=== PATIENT | male | born 1975 | race Caucasian/White ===

== ENCOUNTER 2016-11-20 21:47 | Emergency (ER) | payer SELFPAY ==
[2016-11-20] MEDS ORDERED: SODIUM CHLORIDE 0.9% 1,000 ML IV STA ×2 (21:51→21:54)
[2016-11-20] MEDS ORDERED: DIPH,PERTUS(ACELL)TETVAC-LF 0.5 ML VIAL IM ONE (21:55)
[2016-11-20 22:03] VITALS: BP 224/125; PULSE 91; RESP 20; TEMP 98.1
[2016-11-20 22:05] LABS: Basophils # (A) 0.1 k/uL (0-0.2); Basophils % (A) 1 %; CH 31.4; CHCM 34.7; Eosinophils # (A) 0.6 k/uL (0-0.7); Eosinophils % (A) 5 %; HCT 47.7 % (39.0-53.0); HDW 2.69; HGB 16.1 gm/dL (13.0-17.5); Luc # (Auto) 0.24; Luc % (Auto) 2; Lymphocytes # (A) 2.4 k/uL (1.0-4.8); Lymphocytes % (A) 21 %; MCH 30.8 pg (25.0-35.0); MCHC 33.8 g/dL (31.0-37.0); Mean Platelet Volume 6.3; Monocytes # (A) 0.5 k/uL (0-1.0); Monocytes % (A) 5 %; Neutrophils # (A) 7.8 k/uL (1.3-7.7); Neutrophils % (A) 67 %; RBC 5.24 m/uL (4.30-5.90); RDW 13.5 % (11.5-15.5); WBC 11.6 k/uL (3.8-10.6)
--- NOTE | 2016-11-20 22:10 | XR ---
EXAMINATION TYPE: XR chest 1V portable DATE OF EXAM: 11/20/2016 10:06 PM COMPARISON: NONE HISTORY: Pain TECHNIQUE: Single supine frontal view of the chest is obtained. FINDINGS: There is no focal air space opacity, pleural effusion, or pneumothorax seen. The cardiac silhouette size is within normal limits. The osseous structures are intact. IMPRESSION: No acute process.
[2016-11-20 22:14] LABS: INR 1.1 (<1.1); Partial Thromboplastin Time 23.3 sec (22.0-30.0); Prothrombin Time 10.7 sec (9.0-12.0)
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
[2016-11-20 22:21] LABS: Glucose,Whole Blood 103 mg/dL (75-99)
[2016-11-20 22:22] LABS: Appearance,Urine Clear (Clear); Bilirubin,Urine Negative (Negative); Glucose,Urine (UA) Negative (Negative); Ketones,Urine Negative (Negative); Leukocyte Esterase,Urine Negative (Negative); Nitrite,Urine Negative (Negative); PH, Urine 5.5 (5.0-8.0); Protein,Urine Negative (Negative); Specific Gravity,Urine 1.003 (1.001-1.035); UA Billing (MACRO vs. MICRO) CHEM; Urobilinogen,Urine <2.0 mg/dL (<2.0)
[2016-11-20 22:28] LABS: Creatine Kinase 303 U/L (55-170)
[2016-11-20 22:29] LABS: ALT 61 U/L (21-72); AST 42 U/L (17-59); Alkaline Phosphatase 97 U/L (38-126); Amylase 70 U/L (30-110); Anion Gap 12 mmol/L; Blood Urea Nitrogen 12 mg/dL (9-20); Calcium 9.3 mg/dL (8.4-10.2); Carbon Dioxide 20 mmol/L (22-30); Chloride 106 mmol/L (98-107); Glucose 103 mg/dL (74-99); Non-African American GFR(MDRD) >60 (>60 ml/min/1.73 sqM); Potassium 3.7 mmol/L (3.5-5.1); Sodium 138 mmol/L (137-145); Total Bilirubin 0.4 mg/dL (0.2-1.3); Total Protein 7.2 g/dL (6.3-8.2)
[2016-11-20 22:39] LABS: Troponin I <0.012 ng/mL (0.000-0.034)
[2016-11-20 22:42] LABS: Alcohol 220 mg/dL
[2016-11-20 22:45] LABS: Creatine Kinase MB 2.7 ng/mL (0.0-2.4)
--- NOTE | 2016-11-20 22:45 | CT ---
EXAM: CT Head Without Intravenous Contrast CLINICAL HISTORY: Reason: Pain TECHNIQUE: Axial computed tomography images of the head/brain without intravenous contrast. CTDI is 57.40 mGy and DLP is 1047.10 mGy-cm This CT exam was performed using one or more of the following dose reduction techniques: automated exposure control, adjustment of the mA and/or kV according to patient size, and/or use of iterative reconstruction technique. COMPARISON: No relevant prior studies available. FINDINGS: Brain: Unremarkable. No hemorrhage. No significant white matter disease. No edema. Ventricles: Unremarkable. No ventriculomegaly. Bones/joints: No acute fracture. Soft tissues: Large broad right scalp soft tissue hematoma extending to the vertex, with associated scalp laceration and multiple foci of subcutaneous air throughout. Sinuses: There is mild paranasal sinus mucosal thickening present throughout. Mastoid air cells: Unremarkable as visualized. No mastoid effusion. IMPRESSION: 1. Broad region of posttraumatic changes involving the right lateral scalp soft tissues. 2. No acute intracranial sequela from trauma is seen. 3. Mild bilateral paranasal sinus disease. EXAM: CT Cervical Spine Without Intravenous Contrast CLINICAL HISTORY: Reason: Pain TECHNIQUE: Axial computed tomography images of the cervical spine without intravenous contrast. CTDI is 30.70 mGy and DLP is 662.00 mGy-cm This CT exam was performed using one or more of the following dose reduction techniques: automated exposure control, adjustment of the mA and/or kV according to patient size, and/or use of iterative reconstruction technique. COMPARISON: No relevant prior studies available. FINDINGS: Vertebrae: There is levoscoliosis centered at the C6 level, along with multilevel degenerative changes. Vertebral body heights are maintained as is alignment. No acute fracture is seen. Discs/spinal canal/neural foramina: There appears to be a mild posterior disc bulge centered to the left of midline at C6-7. There is multilevel foraminal narrowing, preferentially right-sided at C3-4 through C5-6, greater at the latter level. Small amount of air posterior to the thecal sac at T2-3 believed to be related to adjacent advanced facet degenerative change. Soft tissues: Prevertebral soft tissues within normal limits. Thyroid: Subtle small 5 mm nodule in the lateral right thyroid lobe on image 65, and another is seen in the right isthmus measuring 6 mm on image 70. Lung apices: Unremarkable as visualized. IMPRESSION: 1. No acute osseous abnormality is seen. Clinical clearance of the cervical spine is still recommended. 2. Lower cervical levoscoliosis and multilevel degenerative changes. 3. Small right thyroid lobe nodules.
[2016-11-20] MEDS ORDERED: ceFAZolin 1,000 MG in DEXTROSE/WATER 1 50ML.BAG IVPB STA (23:08)
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
[2016-11-20] MEDS ORDERED: LABETALOL 5 MG/ML VIAL MDV IVP STA (23:53)
[2016-11-20] MEDS ORDERED: HYDROmorphone 1 MG/ML 1 ML SYRINGE IVP STA (23:55)
== END 2016-11-21 00:35 | disposition short-term general hospital (02) ==
LOC: EC 21:47
DX: S01.01XA Laceration without foreign body of scalp, initial encounter (principal); S16.1XXA Strain of muscle, fascia and tendon at neck level, initial encounter; I10 Essential (primary) hypertension; F10.129 Alcohol abuse with intoxication, unspecified; I45.2 Bifascicular block; F17.200 Nicotine dependence, unspecified, uncomplicated; Z23 Encounter for immunization; V86.09XA Driver of other special all-terrain or other off-road motor vehicle injured in traffic accident, initial encounter; Y92.410 Unspecified street and highway as the place of occurrence of the external cause
CPT/HCPCS: 99285; 96374; 96375 ×2; 96361 ×3; 90471; 36415; 93005; 86900; 86901; 80053; 82150; 82550; 82553; 83690; 84484; 85025; 85610; 85730; 86850; 81003; 80306; 80320; 71010; 72170; 72125; 70450; 90715; J1170; J0690

== ENCOUNTER 2018-12-25 13:18 | Emergency (ER) | payer OTHER ==
--- NOTE | 2018-12-25 13:35 | ED ---
General Adult HPI - General Chief complaint: Recheck/Abnormal Lab/Rx Stated complaint: elevated BP Time Seen by Provider: 12/25/18 13:29 Source: patient, RN notes reviewed Mode of arrival: ambulatory Limitations: no limitations - History of Present Illness Initial comments: 43-year-old male presents to the emergency department for a chief complaint of h igh blood pressure. States that his blood pressure has been high for a very long time. States it is always high when he goes to urgent care or any other health care office. States that he has also had tingling radiating down his right arm and up his right side of his neck. Since this has been ongoing for several weeks. States he sees a chiropractor for this which does help somewhat. States it worsens with movement. 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 States he did try to follow up with a primary care doctor for this but they did not take his insurance. States he has not followed up with anyone since. Denies any chest pain or shortness of breath. Denies any weakness in the right arm. No headaches.Patient has no other complaints at this time including shortness of breath, chest pain, abdominal pain, nausea or vomiting, headache, or visual changes. - Related Data Previous Rx's Medication Instructions Recorded Hydrochlorothiazide 12.5 mg PO DAILY #20 capsule 12/25/18 Allergies Allergy/AdvReac Type Severity Reaction Status Date / Time No Known Allergies Allergy Verified 12/25/18 13:47 Review of Systems ROS Statement: Those systems with pertinent positive or pertinent negative responses have been documented in the HPI. ROS Other: All systems not noted in ROS Statement are negative. Past Medical History Past Medical History: No Reported History History of Any Multi-Drug Resistant Organisms: None Reported Past Surgical History: No Surgical Hx Reported Past Psychological History: No Psychological Hx Reported Smoking Status: Current every day smoker Past Alcohol Use History: Daily Past Drug Use History: Marijuana General Exam Limitations: no limitations General appearance: alert, in no apparent distress Head exam: Present: atraumatic, normocephalic, normal inspection Eye exam: Present: normal appearance, PERRL, EOMI. Absent: scleral icterus, conjunctival injection, periorbital swelling ENT exam: Present: normal exam, mucous membranes moist Neck exam: Present: normal inspection, full ROM. Absent: tenderness, meningismus, lymphadenopathy Respiratory exam: Present: normal lung sounds bilaterally. Absent: respiratory distress, wheezes, rales, rhonchi, stridor Cardiovascular Exam: Present: regular rate, normal rhythm, normal heart sounds. Absent: systolic murmur, diastolic murmur, rubs, gallop, clicks GI/Abdominal exam: Present: soft, normal bowel sounds. Absent: distended, tenderness, guarding, rebound, rigid Extremities exam: Present: normal inspection, full ROM (Range motion in the right upper arm), normal capillary refill (Capillary refill less than 10 seconds, radial pulses 2+ and equal bilaterally), other (sensation completely intact in the right upper extremity, strength 5 out of 5.). Absent: tenderness, pedal edema, joint swelling, calf tenderness Course Vital Signs 12/25/18 12/25/18 12/25/18 13:25 13:42 15:04 Temperature 98.5 F Pulse Rate 98 92 81 Respiratory 16 16 16 Rate Blood Pressure 128/83 188/144 176/121 O2 Sat by Pulse 99 98 96 Oximetry EKG Findings - EKG Comments: EKG Findings:: Normal sinus rhythm, ventricular rate 85, right bundle branch block, QRS duration 164, QTC 487, compared to EKG from 11/20/2016. Medical Decision Making - Medical Decision Making 43-year-old male presents to the emergency department for a chief complaint of hypertension. States this has been ongoing for a very long time but he has not followed up. His blood pressure is always high. Patient also has paresthesias in the right arm that radiates from his neck. Sometimes it does radiate up to his face as well. Neurovascular status intact in the right upper extremity. Denies any chest pain or pressure. No shortness of breath. Feeling is likely secondary to paresthesia however cardiac workup was initiated. CBC CMP unremarkable. Patient does have an elevated BNP with a right bundle-branch block which was an incidental finding. Right bundle mandie block has been stable since comparison November 2016. Chest x-ray is normal. Troponin negative. Patient is hypertensive however blood pressure did decrease to 170/120. At this time patient will not be given IV antihypertensives as he is completely asy mptomatic however will be given monotherapy for home. Recommended close follow- up with primary care. Patient likely has a cervical radiculopathy causing the tingling with asymmetric hypertension. Referral given to primary care. Requesting DC. - Lab Data Result diagrams: 12/25/18 13:40 12/25/18 13:40 Lab Results 12/25/18 12/25/18 12/25/18 Range/Units 13:40 13:40 13:40 WBC 12.5 H (3.8-10.6) k/uL RBC 5.39 (4.30-5.90) m/uL Hgb 16.4 (13.0-17.5) gm/dL Hct 49.2 (39.0-53.0) % MCV 91.3 (80.0-100.0) fL MCH 30.4 (25.0-35.0) pg MCHC 33.3 (31.0-37.0) g/dL RDW 14.1 (11.5-15.5) % Plt Count 366 (150-450) k/uL Neutrophils % 81 % Lymphocytes % 12 % Monocytes % 4 % Eosinophils % 1 % Basophils % 0 % Neutrophils # 10.2 H (1.3-7.7) k/uL Lymphocytes # 1.5 (1.0-4.8) k/uL Monocytes # 0.5 (0-1.0) k/uL Eosinophils # 0.2 (0-0.7) k/uL Basophils # 0.0 (0-0.2) k/uL PT (9.0-12.0) sec INR (<1.2) APTT (22.0-30.0) sec Sodium 137 (137-145) mmol/L Potassium 4.2 (3.5-5.1) mmol/L Chloride 105 (98-107) mmol/L Carbon Dioxide 19 L (22-30) mmol/L Anion Gap 13 mmol/L BUN 11 (9-20) mg/dL Creatinine 0.87 (0.66-1.25) mg/dL Est GFR (CKD-EPI)AfAm >90 (>60 ml/min/1.73 sqM) Est GFR (CKD-EPI)NonAf >90 (>60 ml/min/1.73 sqM) Glucose 198 H (74-99) mg/dL Calcium 9.9 (8.4-10.2) mg/dL Magnesium 2.2 (1.6-2.3) mg/dL Total Bilirubin 0.6 (0.2-1.3) mg/dL AST 22 (17-59) U/L ALT 16 L (21-72) U/L Alkaline Phosphatase 102 (38-126) U/L Troponin I (0.000-0.034) ng/mL NT-Pro-B Natriuret Pep 1080 pg/mL Total Protein 6.9 (6.3-8.2) g/dL Albumin 3.9 (3.5-5.0) g/dL 12/25/18 12/25/18 Range/Units 13:40 13:40 WBC (3.8-10.6) k/uL RBC (4.30-5.90) m/uL Hgb (13.0-17.5) gm/dL Hct (39.0-53.0) % MCV (80.0-100.0) fL MCH (25.0-35.0) pg MCHC (31.0-37.0) g/dL RDW (11.5-15.5) % Plt Count (150-450) k/uL Neutrophils % % Lymphocytes % % Monocytes % % Eosinophils % % Basophils % % Neutrophils # (1.3-7.7) k/uL Lymphocytes # (1.0-4.8) k/uL Monocytes # (0-1.0) k/uL Eosinophils # (0-0.7) k/uL Basophils # (0-0.2) k/uL PT 10.2 (9.0-12.0) sec INR 0.9 (<1.2) APTT 27.3 (22.0-30.0) sec Sodium (137-145) mmol/L Potassium (3.5-5.1) mmol/L Chloride (98-107) mmol/L Carbon Dioxide (22-30) mmol/L Anion Gap mmol/L BUN (9-20) mg/dL Creatinine (0.66-1.25) mg/dL Est GFR (CKD-EPI)AfAm (>60 ml/min/1.73 sqM) Est GFR (CKD-EPI)NonAf (>60 ml/min/1.73 sqM) Glucose (74-99) mg/dL Calcium (8.4-10.2) mg/dL Magnesium (1.6-2.3) mg/dL Total Bilirubin (0.2-1.3) mg/dL AST (17-59) U/L ALT (21-72) U/L Alkaline Phosphatase (38-126) U/L Troponin I <0.012 (0.000-0.034) ng/mL NT-Pro-B Natriuret Pep pg/mL Total Protein (6.3-8.2) g/dL Albumin (3.5-5.0) g/dL Disposition Clinical Impression: Asymptomatic hypertension, Cervical radiculopathy Disposition: HOME SELF-CARE Condition: Good Instructions (If sedation given, give patient instructions): Hypertension (ED), Cervical Radiculopathy (ED) Additional Instructions: Please take medication as directed. Please follow-up with primary care in 1-2 days. Return here if you are having any worsening symptoms. Prescriptions: Hydrochlorothiazide 12.5 mg PO DAILY #20 capsule Is patient prescribed a controlled substance at d/c from ED?: No Referrals: Mundo Stack MD [REFERRING] - 1-2 days Time of Disposition: 15:56
[2018-12-25 14:31] LABS: Basophils % (A) 0 %; Eosinophils # (A) 0.2 k/uL (0-0.7); Eosinophils % (A) 1 %; HCT 49.2 % (39.0-53.0); HGB 16.4 gm/dL (13.0-17.5); Lymphocytes # (A) 1.5 k/uL (1.0-4.8); Lymphocytes % (A) 12 %; MCH 30.4 pg (25.0-35.0); MCHC 33.3 g/dL (31.0-37.0); MCV 91.3 fL (80.0-100.0); Mean Platelet Volume 7.1; Monocytes # (A) 0.5 k/uL (0-1.0); Monocytes % (A) 4 %; Neutrophils # (A) 10.2 k/uL (1.3-7.7); Neutrophils % (A) 81 %; Platelet Count 366 k/uL (150-450); RBC 5.39 m/uL (4.30-5.90); RDW 14.1 % (11.5-15.5); WBC 12.5 k/uL (3.8-10.6)
--- NOTE | 2018-12-25 14:36 | XR ---
EXAMINATION TYPE: XR chest 2V DATE OF EXAM: 12/25/2018 COMPARISON: Prior chest x-ray November 20, 2016 HISTORY: Hypertension and chest pain. TECHNIQUE: Frontal and lateral views of the chest are obtained. FINDINGS: Improved inspiration on current study. Overlying EKG leads are redemonstrated. There is no focal air space opacity, pleural effusion, or pneumothorax seen. The cardiac silhouette size is with in normal limits. The osseous structures are intact. IMPRESSION: No acute cardiopulmonary process.
[2018-12-25 14:38] LABS: ALT 16 U/L (21-72); AST 22 U/L (17-59); Albumin 3.9 g/dL (3.5-5.0); Alkaline Phosphatase 102 U/L (38-126); Anion Gap 13 mmol/L; Blood Urea Nitrogen 11 mg/dL (9-20); Calcium 9.9 mg/dL (8.4-10.2); Carbon Dioxide 19 mmol/L (22-30); Chloride 105 mmol/L (98-107); Glucose 198 mg/dL (74-99); Magnesium 2.2 mg/dL (1.6-2.3); Potassium 4.2 mmol/L (3.5-5.1); Sodium 137 mmol/L (137-145); Total Bilirubin 0.6 mg/dL (0.2-1.3); Total Protein 6.9 g/dL (6.3-8.2)
[2018-12-25 14:40] LABS: INR 0.9 (<1.2); Partial Thromboplastin Time 27.3 sec (22.0-30.0); Prothrombin Time 10.2 sec (9.0-12.0)
[2018-12-25 15:05] VITALS: PULSE 81
[2018-12-25 16:32] VITALS: BP 172/127; RESP 18; TEMP 98.2
== END 2018-12-25 16:30 | disposition home or self-care (01) ==
LOC: EC 13:18
DX: I10 Essential (primary) hypertension (principal); R59.0 Localized enlarged lymph nodes; R79.89 Other specified abnormal findings of blood chemistry; I45.10 Unspecified right bundle-branch block; F17.200 Nicotine dependence, unspecified, uncomplicated
CPT/HCPCS: 36415; 71046; 80053; 83735; 83880; 84484; 85025; 85610; 85730; 93005; 99284

== ENCOUNTER 2019-07-03 13:03 | Observation (INO) | payer OTHER ==
[2019-07-03 13:11] VITALS: TEMP 98
[2019-07-03] MEDS ORDERED: SODIUM CHLORIDE 0.9% 500 ML 500 ML IV STA (13:20)
[2019-07-03] MEDS ORDERED: HYDROmorphone 1 MG/ML 1 ML SYRINGE IVP STA ×2 (13:22→16:05)
[2019-07-03] MEDS ORDERED: ONDANSETRON 4 MG/2 ML VIAL IVP STA (13:22)
[2019-07-03 13:37] LABS: Basophils # (A) 0.1 k/uL (0-0.2); Basophils % (A) 0 %; Eosinophils # (A) 0.4 k/uL (0-0.7); Eosinophils % (A) 4 %; HCT 50.8 % (39.0-53.0); HGB 17.5 gm/dL (13.0-17.5); Lymphocytes # (A) 1.6 k/uL (1.0-4.8); Lymphocytes % (A) 13 %; MCH 31.4 pg (25.0-35.0); MCHC 34.4 g/dL (31.0-37.0); MCV 91.3 fL (80.0-100.0); Mean Platelet Volume 6.8; Monocytes # (A) 0.4 k/uL (0-1.0); Monocytes % (A) 3 %; Neutrophils # (A) 9.1 k/uL (1.3-7.7); Neutrophils % (A) 78 %; Platelet Count 296 k/uL (150-450); RBC 5.56 m/uL (4.30-5.90); RDW 12.6 % (11.5-15.5); WBC 11.7 k/uL (3.8-10.6)
[2019-07-03 13:45] LABS: ALT 38 U/L (4-49); AST 36 U/L (17-59); African American GFR (CKD) >90 (>60 ml/min/1.73 sqM); Albumin 4.6 g/dL (3.5-5.0); Alkaline Phosphatase 107 U/L (38-126); Anion Gap 11 mmol/L; Blood Urea Nitrogen 13 mg/dL (9-20); Calcium 10.1 mg/dL (8.4-10.2); Carbon Dioxide 24 mmol/L (22-30); Chloride 104 mmol/L (98-107); Glucose 146 mg/dL (74-99); Non-African American GFR(CKD) >90 (>60 ml/min/1.73 sqM); Sodium 139 mmol/L (137-145); Total Protein 7.9 g/dL (6.3-8.2)
--- NOTE | 2019-07-03 14:00 | XR ---
Chest x-ray with left RIBS HISTORY: Trauma and pain, difficulty breathing Frontal view of the chest and 4 views of the left ribs correlated to prior chest x-ray 12/25/2018 Chest x-ray shows a stable appearance. There is a tortuous aorta. No evident airspace disease, pneumo thorax, or pleural effusion. Pulmonary vascularity and stephane are unchanged. There is a spinal curvatur e. No evident displaced rib fracture. impression: Bone scan could be performed for increased sensitivity to assess for fracture as indicate d.
[2019-07-03] MEDS ORDERED: hydrALAZINE HCL 20 MG/ML 1 ML VIAL IVP STA ×2 (14:22→15:21)
--- NOTE | 2019-07-03 15:16 | CT ---
EXAMINATION TYPE: CT angio thor/abd pel aorta DATE OF EXAM: 07/03/2019 COMPARISON: None HISTORY: Left sided pain with elevated blood pressure CT DLP: 1517.5 mGycm. Automated Exposure Control for Dose Reduction was Utilized. CONTRAST: CT scan of the thorax, abdomen and pelvis is performed with IV Contrast, patient injected with 100 mL of Isovue 370. FINDINGS: LUNGS: The lungs are grossly clear, there is no concerning parenchymal mass or nodule identified. T here is no pleural effusion or pneumothorax seen. The tracheobronchial tree is patent. MEDIASTINUM: There are no greater than 1 cm hilar or mediastinal lymph nodes. No pericardial effusi on is seen. There are coronary artery calcifications present. The aorta shows aneurysmal change, ascending aorta measures 4.1 cm LIVER/GB: Liver shows low attenuation likely due to hepatic steatosis and liver is enlarged, gallblad perla is contracted. PANCREAS: No significant abnormality is seen. SPLEEN: Spleen is at the upper limit of normal for size. ADRENALS: No significant abnormality is seen . KIDNEYS: No significant abnormality is seen. BOWEL: No significant abnormality is seen. GENITAL ORGANS: No gross abnormality seen. LYMPH NODES: No greater than 1cm abdominal or pelvic lymph nodes are appreciated. OSSEOUS STRUCTURES: No significant abnormality is seen. No evident fracture. Multilevel spondylosis, degenerative disc change noted in the visualized spine. OTHER: No significant additional abnormality is seen. IMPRESSION: Ascending aortic aneurysm, follow-up recommended. Coronary artery disease. Hepatosplenome jose antonio.
[2019-07-03] MEDS ORDERED: LABETALOL 5 MG/ML VIAL MDV IVP STA (15:30)
--- NOTE | 2019-07-03 15:34 | ED ---
General Adult HPI - General Chief complaint: Back Pain/Injury Stated complaint: back pain Time Seen by Provider: 07/03/19 13:15 Source: patient, RN notes reviewed Mode of arrival: ambulatory Limitations: no limitations - History of Present Illness Initial comments: 44-year-old male presents emergency from chief complaint of back pain, hypertension. Patient states that he injured about a week or so ago after a fall. Patient states that he was splitting wood today felt instantaneous pop in his back and states that he's had extreme pain in which he cannot tolerate. Patient states is taking his breath away. Patient does not go to the PCP and regular basis. Patient states that he is pain is worse with movement. Patient states he's had high blood pressure in the past but he has no complaints and states that his blood pressure is fine. Patient states he is a daily smoker. He hasn't went abdominal pain no head injury no loss conscious. Patient has no bowel bladder incontinence or retention. - Related Data Previous Rx's Medication Instructions Recorded Hydrochlorothiazide 12.5 mg PO DAILY #20 capsule 12/25/18 Allergies Allergy/AdvReac Type Severity Reaction Status Date / Time No Known Allergies Allergy Verified 07/03/19 13:11 Review of Systems ROS Statement: Those systems with pertinent positive or pertinent negative responses have been documented in the HPI. ROS Other: All systems not noted in ROS Statement are negative. Past Medical History Past Medical History: Hypertension History of Any Multi-Drug Resistant Organisms: None Reported Past Surgical History: No Surgical Hx Reported Past Psychological History: No Psychological Hx Reported Smoking Status: Current every day smoker Past Alcohol Use History: Daily Past Drug Use History: Marijuana General Exam Limitations: no limitations General appearance: alert, in no apparent distress Head exam: Present: atraumatic, normocephalic, normal inspection Eye exam: Present: normal appearance, PERRL, EOMI. Absent: scleral icterus, conjunctival injection, periorbital swelling ENT exam: Present: normal exam, normal oropharynx, mucous membranes moist, TM's normal bilaterally Neck exam: Present: normal inspection, full ROM. Absent: tenderness, meningismus, lymphadenopathy Respiratory exam: Present: normal lung sounds bilaterally. Absent: respiratory distress, wheezes, rales, rhonchi, stridor Cardiovascular Exam: Present: regular rate, normal rhythm, normal heart sounds. Absent: systolic murmur, diastolic murmur, rubs, gallop, clicks GI/Abdominal exam: Present: soft, normal bowel sounds. Absent: distended, tenderness, guarding, rebound, rigid Back exam: Present: CVA tenderness (L), paraspinal tenderness. Absent: CVA tenderness (R), vertebral tenderness Neurological exam: Present: alert, oriented X3, CN II-XII intact Skin exam: Present: warm, dry, intact, normal color. Absent: rash Course Vital Signs 07/03/19 07/03/19 13:08 15:16 Temperature 98 F Pulse Rate 96 82 Respiratory 20 18 Rate Blood Pressure 225/156 192/116 O2 Sat by Pulse 97 98 Oximetry EKG Findings - EKG Comments: EKG Findings:: EKG performed at 13:21 normal sinus rhythm with right bundle left anterior fascicular block rate of 93 MN 170 QS 168 QRS 418 cm 519 there are no acute changes from prior EKG on December 25 2018 Medical Decision Making - Medical Decision Making Patient's had labs x-rays and CTs. CT shows a 70 year aneurysm 4.1 cm with no dissection. Patient's troponin is indeterminate at 0.020, EKG shows no acute changes are chronic changes noted. Patient's blood pressure continues to be elevated after multiple antihypertensives patient be admitted for hypertension urgency, back pain, aortic aneurysm. - Lab Data Result diagrams: 07/03/19 13:26 07/03/19 13:26 Lab Results 07/03/19 07/03/19 07/03/19 Range/Units 13:26 13:26 13:26 WBC 11.7 H (3.8-10.6) k/uL RBC 5.56 (4.30-5.90) m/uL Hgb 17.5 (13.0-17.5) gm/dL Hct 50.8 (39.0-53.0) % MCV 91.3 (80.0-100.0) fL MCH 31.4 (25.0-35.0) pg MCHC 34.4 (31.0-37.0) g/dL RDW 12.6 (11.5-15.5) % Plt Count 296 (150-450) k/uL Neutrophils % 78 % Lymphocytes % 13 % Monocytes % 3 % Eosinophils % 4 % Basophils % 0 % Neutrophils # 9.1 H (1.3-7.7) k/uL Lymphocytes # 1.6 (1.0-4.8) k/uL Monocytes # 0.4 (0-1.0) k/uL Eosinophils # 0.4 (0-0.7) k/uL Basophils # 0.1 (0-0.2) k/uL Sodium 139 (137-145) mmol/L Potassium 4.0 (3.5-5.1) mmol/L Chloride 104 (98-107) mmol/L Carbon Dioxide 24 (22-30) mmol/L Anion Gap 11 mmol/L BUN 13 (9-20) mg/dL Creatinine 0.97 (0.66-1.25) mg/dL Est GFR (CKD-EPI)AfAm >90 (>60 ml/min/1.73 sqM) Est GFR (CKD-EPI)NonAf >90 (>60 ml/min/1.73 sqM) Glucose 146 H (74-99) mg/dL Calcium 10.1 (8.4-10.2) mg/dL Total Bilirubin 1.0 (0.2-1.3) mg/dL AST 36 (17-59) U/L ALT 38 (4-49) U/L Alkaline Phosphatase 107 (38-126) U/L Troponin I 0.020 (0.000-0.034) ng/mL Total Protein 7.9 (6.3-8.2) g/dL Albumin 4.6 (3.5-5.0) g/dL Lipase 81 (23-300) U/L Disposition Clinical Impression: Contusion of rib on left side, Hypertensive urgency, Ascending aortic aneurysm Disposition: ADMITTED IP TO THIS HOSP Condition: Fair Referrals: None,Stated [Primary Care Provider] - 1-2 days
[2019-07-03] MEDS ORDERED: hydrALAZINE HCL 20 MG/ML 1 ML VIAL IVP PRN (15:36)
[2019-07-03] MEDS ORDERED: HYDROmorphone 1 MG/ML 1 ML SYRINGE IVP PRN (16:05)
[2019-07-03] MEDS ORDERED: HYDROmorphone 0.5 MG/0.5 ML SYRINGE IVP PRN (16:05)
--- NOTE | 2019-07-03 17:28 | ED ---
Medical Decision Making - Medical Decision Making Received phone call from special education paraprofessional after echo was obtained there concern that there may be a false lumen or possible dissection. Transportation Aid recommends patient to be transferred for possible gated CT/MAINOR Patient continues to have hypertension despite multiple medications. Patient was started on a esmolol drip with the 500 mics bolus and 50 mics per kilogram drip. I did contact vascular surgery who recommended to contact cardiothoracic at another facility. I did contact [facility] who did not have coverage for a type a dissection. earle Wright was contacted I did discuss case with Dr. Melissa at 17:15. Except transfer awaiting bed placement at this time. Cardene was started at 5 mg per hour at 1750 Bed number [id number] given at 1755 - Lab Data Result diagrams: 07/03/19 13:26 07/03/19 13:26 Lab Results 07/03/19 07/03/19 07/03/19 Range/Units 13:26 13:26 13:26 WBC 11.7 H (3.8-10.6) k/uL RBC 5.56 (4.30-5.90) m/uL Hgb 17.5 (13.0-17.5) gm/dL Hct 50.8 (39.0-53.0) % MCV 91.3 (80.0-100.0) fL MCH 31.4 (25.0-35.0) pg MCHC 34.4 (31.0-37.0) g/dL RDW 12.6 (11.5-15.5) % Plt Count 296 (150-450) k/uL Neutrophils % 78 % Lymphocytes % 13 % Monocytes % 3 % Eosinophils % 4 % Basophils % 0 % Neutrophils # 9.1 H (1.3-7.7) k/uL Lymphocytes # 1.6 (1.0-4.8) k/uL Monocytes # 0.4 (0-1.0) k/uL Eosinophils # 0.4 (0-0.7) k/uL Basophils # 0.1 (0-0.2) k/uL Sodium 139 (137-145) mmol/L Potassium 4.0 (3.5-5.1) mmol/L Chloride 104 (98-107) mmol/L Carbon Dioxide 24 (22-30) mmol/L Anion Gap 11 mmol/L BUN 13 (9-20) mg/dL Creatinine 0.97 (0.66-1.25) mg/dL Est GFR (CKD-EPI)AfAm >90 (>60 ml/min/1.73 sqM) Est GFR (CKD-EPI)NonAf >90 (>60 ml/min/1.73 sqM) Glucose 146 H (74-99) mg/dL Calcium 10.1 (8.4-10.2) mg/dL Total Bilirubin 1.0 (0.2-1.3) mg/dL AST 36 (17-59) U/L ALT 38 (4-49) U/L Alkaline Phosphatase 107 (38-126) U/L Troponin I 0.020 (0.000-0.034) ng/mL Total Protein 7.9 (6.3-8.2) g/dL Albumin 4.6 (3.5-5.0) g/dL Lipase 81 (23-300) U/L Disposition Clinical Impression: Contusion of rib on left side, Hypertensive urgency, Ascending aortic aneurysm, Aortic dissection Disposition: OTHER INSTITUTION NOT DEFINED Condition: Critical - Out of Hospital Transfer - Req. Specs Out of Hospital Transfer - Requested Specifics: Medical ICU ([facility])
[2019-07-03] MEDS ORDERED: ESMOLOL IN SODIUM CHLORIDE PMX 2.5 GM in SALINE 1 250ML.BAG IV SCH (17:30)
[2019-07-03] MEDS ORDERED: NICOTINE 21MG/24HR PATCH TRANSDERM STA (17:41)
[2019-07-03] MEDS ORDERED: LORazepam 2 MG/ML INJ IV STA (17:46)
[2019-07-03 18:08] VITALS: BP 185/123; PULSE 76; RESP 17
[2019-07-03] MEDS ORDERED: niCARdipine 20 MG in SODIUM CHLORIDE 0.9% 192 ML IV SCH (18:15)
[2019-07-04] MEDS ORDERED: ASPIRIN 325 MG TAB PO SCH (09:00)
--- NOTE | 2019-07-04 12:40 | ECHOF ---
Referral Reason:pain, uncontrolled hypertension MEASUREMENTS -------- HEIGHT: 182.9 cm WEIGHT: 93.0 kg BP: IVSd: 1.6 cm (0.6 - 1.1) LVIDd: 4.8 cm (3.9 - 5.3) LVPWd: 1.4 cm (0.6 - 1.1) EDV(Teich): 110 ml IVSs: 1.9 cm LVIDs: 3.8 cm LVPWs: 1.0 cm %IVS Thck: 15 % ESV(Teich): 62 ml EF(Teich): 43 % %FS: 21 % SV(Teich): 47 ml Ao Diam: 4.3 cm (2.0 - 3.7) LA Diam: 2.7 cm (2.7 - 3.8) AV Cusp: 1.9 cm (1.5 - 2.6) EPSS: 0.3 cm MV E Kel[place]: 0.44 m/s MV DecT: 242 ms MV Dec [place]: 1.8 m/s MV A Kelvin: 0.85 m/s MV E/A Ratio: 0.51 MV PHT: 70 ms AV Vmax: 1.43 m/s AV maxP.22 mmHg TR Vmax: 1.18 m/s TR maxP.60 mmHg RAP: 5.00 mmHg RVSP: 10.60 mmHg MV EF SLOPE: 101.09 mm/s (70 - 150) MV EXCURSION: 18.74 mm (> 18.000) FINDINGS -------- Sinus rhythm. This was a technically good study. The left ventricular size is normal. There is severe concentric left ventricular hypertrophy. Ove rall left ventricular systolic function is normal with, an EF between 55 - 60 %. The right ventricle is normal in size. The left atrial size is normal. The right atrial size is normal. There is mild aortic valve sclerosis. There is no evidence of aortic regurgitation. Mild mitral annular calcification present. Mild mitral regurgitation is present. Mild tricuspid regurgitation present. Right ventricular systolic pressure is normal at < 35 mmHg. There is no evidence of pulmonary hypertension. There is no pulmonic regurgitation present. Aortic Root is dilated and measures 4.4cm. There is no pericardial effusion. Possible Aortic Dissection: Dr MAURICE spoke to Dr Liang about Echo Findings. CONCLUSIONS -------- 1. Sinus rhythm. 2. This was a technically good study. 3. The left ventricular size is normal. 4. There is severe concentric left ventricular hypertrophy. 5. Overall left ventricular systolic function is normal with, an EF between 55 - 60 %. 6. The right ventricle is normal in size. 7. The left atrial size is normal. 8. The right atrial size is normal. 9. There is mild aortic valve sclerosis. 10. Mild mitral annular calcification present. 11. Mild mitral regurgitation is present. 12. Mild tricuspid regurgitation present. 13. Right ventricular systolic pressure is normal at < 35 mmHg. 14. There is no evidence of pulmonary hypertension. 15. There is no pulmonic regurgitation present. 16. Aortic Root is dilated and measures 4.4cm. 17. There is no pericardial effusion. 18. Possible Aortic Dissection: Dr MAURICE spoke to Dr Liang about Echo Findings. IRRIGATIONIST DESIGNER: Anum Gil RDCS
--- NOTE | 2019-07-09 15:23 | HP ---
HISTORY AND PHYSICAL HISTORY AND PHYSICAL AND DISCHARGE SUMMARY: FINAL DIAGNOSES: 1. Possible aortic dissection with aortic aneurysm. 2. Hypertensive urgency. HISTORY OF PRESENT ILLNESS: This is a 44-year-old gentleman with a past medical history of multiple medical problems, admitted with features of aortic aneurysm, and possible aortic dissection. Cardiology saw the patient. Patient was evaluated in the ER and the patient directly transferred to [facility] for further evaluation and treatment before being seen. Please refer to Cardiology consultation notes and ER notes for further details. The prognosis remained extremely guarded throughout the hospitalization. MMODL / IJN: [id number] /
== END 2019-07-03 18:37 | disposition short-term general hospital, planned readmission (82) ==
LOC: EC 13:03 → 3SCARD 15:23
PROVIDERS: ADMIT Hospitalist; ATTEND Hospitalist
DX: I71.2 Thoracic aortic aneurysm, without rupture (principal); I16.0 Hypertensive urgency; S20.211A Contusion of right front wall of thorax, initial encounter; I10 Essential (primary) hypertension; I08.3 Combined rheumatic disorders of mitral, aortic and tricuspid valves; I44.4 Left anterior fascicular block; I25.10 Atherosclerotic heart disease of native coronary artery without angina pectoris; R16.2 Hepatomegaly with splenomegaly, not elsewhere classified; F17.200 Nicotine dependence, unspecified, uncomplicated; Z79.899 Other long term (current) drug therapy; W19.XXXA Unspecified fall, initial encounter
CPT/HCPCS: 96361; 96376; 96365; 96375; 99285; 36415; 93005; 93306; 80053; 83690; 84484; 85025; 71101; 71275; 74174; G0378; S4990; J2060; J0360; J2405; J1170; Q9967

== ENCOUNTER 2019-07-22 10:37 | Inpatient (IN) | payer OTHER ==
[2019-07-22] MEDS ORDERED: CARVEDILOL 12.5 MG TAB PO STA ×2 (11:06→18:23)
--- NOTE | 2019-07-22 12:06 | ED ---
Recheck HPI - General Chief Complaint: Recheck/Abnormal Lab/Rx Stated Complaint: Med refill Time Seen by Provider: 07/22/19 11:01 Source: patient Mode of arrival: ambulatory Limitations: no limitations - History of Present Illness Initial Comments: 44-year-old male patient with recent diagnosis of aortic aneurysm and high blood pressure presents to the emergency department today requesting refill on his blood pressure medication. Patient states that he currently does not have insurance and has not yet been able to establish with a primary care provider. States he ran out of his Coreg. Patient states he has been having elevated blood pressures and was instructed to double the dose of Coreg if his blood pressures remained high. Patient states he ran out early and does not have a refill on this medication. States he is currently feeling well. Denies any physical symptoms or concerns. Denies chest pain, shortness of breath, abdominal pain, nausea, or vomiting. Denies numbness, tingling, dizziness, weakness. Denies headache. - Related Data Home Medications Medication Instructions Recorded Confirmed Aspirin EC [Ecotrin Low Dose] 81 mg PO DAILY 07/22/19 07/22/19 Atorvastatin [Lipitor] 40 mg PO HS 07/22/19 07/22/19 Carvedilol [Coreg] 12.5 mg PO BID 07/22/19 07/22/19 Losartan Potassium 50 mg PO DAILY 07/22/19 07/22/19 Allergies Allergy/AdvReac Type Severity Reaction Status Date / Time No Known Allergies Allergy Verified 07/22/19 15:07 Review of Systems ROS Statement: Those systems with pertinent positive or pertinent negative responses have been documented in the HPI. ROS Other: All systems not noted in ROS Statement are negative. Past Medical History Past Medical History: Hypertension Additional Past Medical History / Comment(s): aortic anerysm History of Any Multi-Drug Resistant Organisms: None Reported Past Surgical History: No Surgical Hx Reported Past Psychological History: No Psychological Hx Reported Smoking Status: Current every day smoker Past Alcohol Use History: Daily Past Drug Use History: Marijuana General Exam Limitations: no limitations General appearance: alert, in no apparent distress, other (Physical well- developed, well-nourished adult male patient in no acute distress. Vital signs upon presentation are temperature 98.0F, pulse 84, respirations 18, blood pressure 2 10/21/2025, pulse ox 95% on room air.) Eye exam: Present: normal appearance, PERRL, EOMI. Absent: scleral icterus, conjunctival injection, periorbital swelling ENT exam: Present: normal exam, normal oropharynx, mucous membranes moist Respiratory exam: Present: normal lung sounds bilaterally. Absent: respiratory distress, wheezes, rales, rhonchi, stridor Cardiovascular Exam: Present: regular rate, normal rhythm, normal heart sounds. Absent: systolic murmur, diastolic murmur, rubs, gallop, clicks GI/Abdominal exam: Present: soft, normal bowel sounds. Absent: distended, tenderness, guarding, rebound, rigid Neurological exam: Present: alert, oriented X3, CN II-XII intact Psychiatric exam: Present: normal affect, normal mood Skin exam: Present: warm, dry, intact, normal color. Absent: rash Course Vital Signs 07/22/19 07/22/19 07/22/19 10:50 11:19 12:30 Temperature 98 F Pulse Rate 84 76 100 Respiratory 18 18 18 Rate Blood Pressure 204/126 206/130 188/128 O2 Sat by Pulse 95 95 99 Oximetry 07/22/19 07/22/19 07/22/19 13:35 14:17 15:13 Temperature Pulse Rate 75 70 73 Respiratory 18 16 18 Rate Blood Pressure 214/142 192/128 211/136 O2 Sat by Pulse 98 98 98 Oximetry 07/22/19 07/22/19 07/22/19 15:39 16:58 18:00 Temperature Pulse Rate 81 72 70 Respiratory 18 18 Rate Blood Pressure 182/123 192/125 179/119 O2 Sat by Pulse 98 98 Oximetry Medical Decision Making - Medical Decision Making 44-year-old male patient recently admitted and transferred to [facility] after finding and descending aortic aneurysm measuring 4.1 cm. Patient was found to have elevated blood pressure as well. He was started on losartan and Coreg. Patient presented today for refill of his coronary, blood pressure sound to be significantly elevated to the point of hypertensive urgency. Is given several blood pressure medications with no responsiveness blood pressure. He'll be admitted to the hospital for further monitoring and blood pressure management. We did double his daily doses of losartan and Coreg. There are medications available for as needed dosing. - Lab Data Result diagrams: 07/22/19 13:24 07/22/19 13:24 Lab Results 07/22/19 07/22/1919 Range/Units 13:24 13:24 14:20 WBC 10.8 H (3.8-10.6) k/uL RBC 5.22 (4.30-5.90) m/uL Hgb 15.9 (13.0-17.5) gm/dL Hct 47.9 (39.0-53.0) % MCV 91.8 (80.0-100.0) fL MCH 30.4 (25.0-35.0) pg MCHC 33.2 (31.0-37.0) g/dL RDW 12.6 (11.5-15.5) % Plt Count 287 (150-450) k/uL Neutrophils % 67 % Lymphocytes % 18 % Monocytes % 6 % Eosinophils % 6 % Basophils % 1 % Neutrophils # 7.3 (1.3-7.7) k/uL Lymphocytes # 2.0 (1.0-4.8) k/uL Monocytes # 0.6 (0-1.0) k/uL Eosinophils # 0.7 (0-0.7) k/uL Basophils # 0.1 (0-0.2) k/uL Sodium 138 (137-145) mmol/L Potassium 4.4 (3.5-5.1) mmol/L Chloride 108 H (98-107) mmol/L Carbon Dioxide 23 (22-30) mmol/L Anion Gap 7 mmol/L BUN 13 (9-20) mg/dL Creatinine 0.83 (0.66-1.25) mg/dL Est GFR (CKD-EPI)AfAm >90 (>60 ml/min/1.73 sqM) Est GFR (CKD-EPI)NonAf >90 (>60 ml/min/1.73 sqM) Glucose 98 (74-99) mg/dL Calcium 10.0 (8.4-10.2) mg/dL Total Bilirubin 0.6 (0.2-1.3) mg/dL AST 41 (17-59) U/L ALT 60 H (4-49) U/L Alkaline Phosphatase 141 H (38-126) U/L Total Protein 7.3 (6.3-8.2) g/dL Albumin 4.3 (3.5-5.0) g/dL Urine Color Yellow Urine Appearance Clear (Clear) Urine pH 6.5 (5.0-8.0) Ur Specific [place] 1.016 (1.001-1.035) Urine Protein Negative (Negative) Urine Glucose (UA) Negative (Negative) Urine Ketones Negative (Negative) Urine Blood Negative (Negative) Urine Nitrite Negative (Negative) Urine Bilirubin Negative (Negative) Urine Urobilinogen <2.0 (<2.0) mg/dL Ur Leukocyte Esterase Negative (Negative) Disposition Clinical Impression: Hypertensive urgency Disposition: ADMITTED IP TO THIS [facility] Condition: Serious Referrals: None,Stated [Primary Care Provider] - 1-2 days Decision to Admit Reason: Admit from EC Decision Date: 07/22/19 Decision Time: 18:28
[2019-07-22] MEDS ORDERED: LABETALOL 5 MG/ML VIAL MDV IVP STA ×2 (13:11→16:02)
[2019-07-22 13:35] LABS: Basophils # (A) 0.1 k/uL (0-0.2); Basophils % (A) 1 %; Eosinophils # (A) 0.7 k/uL (0-0.7); Eosinophils % (A) 6 %; HCT 47.9 % (39.0-53.0); HGB 15.9 gm/dL (13.0-17.5); Lymphocytes % (A) 18 %; MCH 30.4 pg (25.0-35.0); MCHC 33.2 g/dL (31.0-37.0); MCV 91.8 fL (80.0-100.0); Monocytes # (A) 0.6 k/uL (0-1.0); Monocytes % (A) 6 %; Neutrophils # (A) 7.3 k/uL (1.3-7.7); Neutrophils % (A) 67 %; Platelet Count 287 k/uL (150-450); RBC 5.22 m/uL (4.30-5.90); RDW 12.6 % (11.5-15.5); WBC 10.8 k/uL (3.8-10.6)
[2019-07-22] MEDS ORDERED: hydrALAZINE HCL 20 MG/ML 1 ML VIAL IVP STA (13:44)
[2019-07-22 13:45] LABS: ALT 60 U/L (4-49); AST 41 U/L (17-59); African American GFR (CKD) >90 (>60 ml/min/1.73 sqM); Albumin 4.3 g/dL (3.5-5.0); Alkaline Phosphatase 141 U/L (38-126); Anion Gap 7 mmol/L; Blood Urea Nitrogen 13 mg/dL (9-20); Carbon Dioxide 23 mmol/L (22-30); Chloride 108 mmol/L (98-107); Glucose 98 mg/dL (74-99); Non-African American GFR(CKD) >90 (>60 ml/min/1.73 sqM); Potassium 4.4 mmol/L (3.5-5.1); Sodium 138 mmol/L (137-145); Total Bilirubin 0.6 mg/dL (0.2-1.3); Total Protein 7.3 g/dL (6.3-8.2)
[2019-07-22] MEDS ORDERED: ENALAPRILAT 1.25 MG/ML 1 ML VIAL IVP STA (14:55)
[2019-07-22 14:56] LABS: Appearance,Urine Clear (Clear); Bilirubin,Urine Negative (Negative); Blood,Urine Negative (Negative); Color,Urine Yellow; Glucose,Urine (UA) Negative (Negative); Ketones,Urine Negative (Negative); Leukocyte Esterase,Urine Negative (Negative); Nitrite,Urine Negative (Negative); PH, Urine 6.5 (5.0-8.0); Protein,Urine Negative (Negative); Specific Gravity,Urine 1.016 (1.001-1.035); Urobilinogen,Urine <2.0 mg/dL (<2.0)
[2019-07-22] MEDS ORDERED: NICOTINE 21MG/24HR PATCH TRANSDERM STA (15:32)
[2019-07-22] MEDS ORDERED: LOSARTAN 50 MG TAB PO STA (18:23)
[2019-07-22] MEDS ORDERED: NALOXONE 0.4 MG/ML 1 ML VIAL IV PRN (18:23)
[2019-07-22] MEDS ORDERED: hydrALAZINE HCL 20 MG/ML 1 ML VIAL IVP PRN (18:25)
--- NOTE | 2019-07-22 19:35 | P.HPIM ---
History of Present Illness H&P Date: 07/22/19 Chief Complaint: Elevated blood pressure Patient is a 44-year-old male with a known history of hypertension, nicotine addiction currently everyday smoker and also marijuana use who was recently diagnosed with aortic aneurysm 4.1 cm came to ER with complaints of elevated blood pressure and out of his blood pressure medications. Patient says that he was told by his physician to take double the dose with blood pressure is high and he ran out of his medications currently. Currently denied any complaints of chest pain or shortness of breath. No nausea vomiting or abdominal pain. No dizziness or lightheadedness. No headache or dizziness. Patient was previously admitted to the hospital status post fall and left sided rib cage pain, CT chest was done showed aortic aneurysm descending, patient was transferred to [facility] where he was told that he is not a surgical candidate and was recommended to follow-up on regular basis. Currently patient takes losartan and Coreg at home. Review of Systems Constitutional: Patient denies any fever or chills . No generalized weakness or weight loss. Abdomen: Patient denied nausea vomiting and diarrhea and abdominal pain. Cardiovascular: Patient denies any chest pain or short of breath no palpitations. Respiratory: patient denied any cough is from production. No shortness of breath Neurologic: Patient denied any numbness or tingling headache. Musculoskeletal: Patient denies any complaints of joint swelling or deformity. Skin: Negative Psychiatric: Negative Endocrine: No heat or cold intolerance. No recent weight gain. Genitourinary: No dysuria or hematuria. All other 14 point ROS negative except the above Past Medical History Past Medical History: Hypertension Additional Past Medical History / Comment(s): aortic anerysm History of Any Multi-Drug Resistant Organisms: None Reported Past Surgical History: No Surgical Hx Reported Past Psychological History: No Psychological Hx Reported Smoking Status: Current every day smoker Past Alcohol Use History: Daily Past Drug Use History: Marijuana Medications and Allergies Home Medications Medication Instructions Recorded Confirmed Type Aspirin EC [Ecotrin Low Dose] 81 mg PO DAILY 07/22/19 07/22/19 History Atorvastatin [Lipitor] 40 mg PO HS 07/22/19 07/22/19 History Carvedilol [Coreg] 12.5 mg PO BID 07/22/19 07/22/19 History Losartan Potassium 50 mg PO DAILY 07/22/19 07/22/19 History Allergies Allergy/AdvReac Type Severity Reaction Status Date / Time No Known Allergies Allergy Verified 07/22/19 15:07 Physical Exam Vitals: Vital Signs Temp Pulse Resp BP Pulse Ox 07/22/19 18:49 74 18 182/114 98 07/22/19 18:00 70 179/119 07/22/19 16:58 72 18 192/125 98 07/22/19 15:39 81 18 182/123 98 07/22/19 15:13 73 18 211/136 98 07/22/19 14:17 70 16 192/128 98 07/22/19 13:35 75 18 214/142 98 07/22/19 12:30 100 18 188/128 99 07/22/19 11:19 76 18 206/130 95 07/22/19 10:50 98 F 84 18 204/126 95 Intake and Output 07/22/19 07/22/19 07/22/19 06:59 14:59 22:59 Other: Weight 92.986 kg PHYSICAL EXAMINATION: Patient is lying in the bed comfortably, no acute distress, awake alert and oriented.. HEENT: Normocephalic. Neck is supple. Pupils reactive. Nostrils clear. Oral cavity is moist. Ears reveal no drainage. Neck reveals no JVD, carotid bruits, or thyromegaly. CHEST EXAMINATION: Trachea is central. Symmetrical expansion. Lung lizama clear to auscultation and percussion. CARDIAC: Normal S1, S2 with no gallops. No murmurs ABDOMEN: Soft. Bowel sounds normal. No organomegaly. No abdominal bruits. Extremities: reveal no edema. No clubbing or cyanosis Neurologically awake, alert, oriented x3 with well-coordinated movements. No focal deficits noted Skin: No rash or skin lesions. Psychiatric: Coperative. Nonsuicidal Musculoskeletal: No joint swelling or deformity. Normal range of motion. Results CBC & Chem 7: 07/22/19 13:24 07/22/19 13:24 Labs: Abnormal Lab Results - Last 24 Hours (Table) 07/22/19 07/22/19 Range/Units 13:24 13:24 WBC 10.8 H (3.8-10.6) k/uL Chloride 108 H (98-107) mmol/L ALT 60 H (4-49) U/L Alkaline Phosphatase 141 H (38-126) U/L Thrombosis Risk Factor Assmnt - DVT/VTE Prophylaxis DVT/VTE Prophylaxis: Pharmacologic Prophylaxis ordered Assessment and Plan Assessment: Hypertensive urgency Uncontrolled hypertension likely due to ran out of Medications. Recently diagnosed descending I aortic aneurysm 4.1 cm. Ongoing nicotine addiction Marijuana use DVT prophylaxis with early ablation Plan: Patient was given IV hydralazine and enalaprilat in the ER. Patient was started back on Coreg and losartan. Coreg dose was increased to 25 mg twice a day. We will add hydrochlorothiazide 12.5 mg daily and follow up blood pressure closely and titrate medications as needed. Patient was on [employer] sleep for smoking cessation and marijuana use. Further conditions based on the clinical course. Time with Patient: Greater than 30
[2019-07-22] MEDS: HYDROCHLOROTHIAZIDE 12.5 MG CAP PO SCH (20:16)
[2019-07-22] MEDS ORDERED: ATORVASTATIN 40 MG TAB PO SCH (21:00)
[2019-07-22] MEDS: LOSARTAN 50 MG TAB PO SCH (21:36)
[2019-07-22] MEDS: ENALAPRILAT 1.25 MG/ML 1 ML VIAL IVP PRN (21:40)
[2019-07-22] MEDS ORDERED: MELATONIN 3 MG TABLET PO SCH (23:15)
[2019-07-23 00:41] VITALS: RESP 18
[2019-07-23] MEDS: ENALAPRILAT 1.25 MG/ML 1 ML VIAL IVP PRN (04:35)
[2019-07-23] MEDS ORDERED: ACETAMINOPHEN TAB 325 MG TAB PO PRN (05:28)
[2019-07-23] MEDS ORDERED: CARVEDILOL 12.5 MG TAB PO SCH (07:30)
[2019-07-23] MEDS: LOSARTAN 50 MG TAB PO SCH (07:53)
[2019-07-23] MEDS: HYDROCHLOROTHIAZIDE 12.5 MG CAP PO SCH (07:53)
[2019-07-23] MEDS ORDERED: ASPIRIN 81 MG PO SCH (09:00)
[2019-07-23 11:51] VITALS: BP 149/103; PULSE 67; TEMP 98
== END 2019-07-23 13:18 | disposition home or self-care (01) | DRG 305 ==
LOC: EC 10:37 → 3SCARD 15:00
PROVIDERS: ADMIT Internal Medicine; ATTEND Internal Medicine
DX: I16.0 Hypertensive urgency (principal); I71.9 Aortic aneurysm of unspecified site, without rupture; F17.210 Nicotine dependence, cigarettes, uncomplicated; I10 Essential (primary) hypertension; Z79.82 Long term (current) use of aspirin; Z79.899 Other long term (current) drug therapy; Z91.81 History of falling; Z76.0 Encounter for issue of repeat prescription
CPT/HCPCS: 36415; 80053; 81003; 85025; 96374; 96375; 96376; 99283

== ENCOUNTER 2020-03-04 20:11 | Emergency (ER) | payer OTHER ==
[2020-03-04 20:24] VITALS: RESP 18; TEMP 98.1
[2020-03-04 21:34] LABS: Basophils # (A) 0.1 k/uL (0-0.2); Basophils % (A) 1 %; Eosinophils # (A) 0.3 k/uL (0-0.7); Eosinophils % (A) 4 %; HCT 45.1 % (39.0-53.0); HGB 15.5 gm/dL (13.0-17.5); Lymphocytes # (A) 2.4 k/uL (1.0-4.8); Lymphocytes % (A) 26 %; MCH 31.3 pg (25.0-35.0); MCHC 34.3 g/dL (31.0-37.0); MCV 91.2 fL (80.0-100.0); Mean Platelet Volume 7.3; Monocytes # (A) 0.6 k/uL (0-1.0); Monocytes % (A) 6 %; Neutrophils # (A) 5.7 k/uL (1.3-7.7); Neutrophils % (A) 61 %; Platelet Count 223 k/uL (150-450); RBC 4.95 m/uL (4.30-5.90); RDW 12.9 % (11.5-15.5); WBC 9.3 k/uL (3.8-10.6)
[2020-03-04 21:42] LABS: ALT 72 U/L (4-49); AST 50 U/L (17-59); African American GFR (CKD) >90 (>60 ml/min/1.73 sqM); Albumin 4.4 g/dL (3.5-5.0); Alkaline Phosphatase 107 U/L (38-126); Anion Gap 12 mmol/L; Blood Urea Nitrogen 12 mg/dL (9-20); Calcium 9.8 mg/dL (8.4-10.2); Carbon Dioxide 23 mmol/L (22-30); Chloride 103 mmol/L (98-107); Glucose 123 mg/dL (74-99); Magnesium 2.2 mg/dL (1.6-2.3); Non-African American GFR(CKD) >90 (>60 ml/min/1.73 sqM); Potassium 3.2 mmol/L (3.5-5.1); Sodium 138 mmol/L (137-145); Total Bilirubin 0.5 mg/dL (0.2-1.3); Total Protein 7.1 g/dL (6.3-8.2)
[2020-03-04] MEDS ORDERED: POTASSIUM CHLORIDE ER 20 MEQ TAB.ER PO STA (21:44)
--- NOTE | 2020-03-04 21:55 | ED ---
General Adult HPI - General Chief complaint: Recheck/Abnormal Lab/Rx Stated complaint: High BP Time Seen by Provider: 03/04/20 20:48 Source: patient Mode of arrival: ambulatory Limitations: no limitations - History of Present Illness Initial comments: 45-year-old male patient presents to the emergency department today for evaluation of a "whooshing" sound to his right ear and elevated blood pressure. Patient states that he had an abnormal sound in his right ear for four hours today. States he checked his blood pressure and it was elevated at 148/116. Patient does have history of high blood pressure, has been taking his medications as directed. Patient has a known thoracic aortic aneurysm, denies any chest or abdominal pain, denies back pain. Denies dizziness or weakness. Denies any shortness of breath. States that the abnormal sound in his ear has resolved now. He denies any nasal congestion or drainage. Denies ear pain. Patient denies any recent rash, fever, chills, cough, nausea, vomiting, diarrhea, constipation, numbness, tingling, dizziness, weakness, hematuria, dysuria, urinary urgency, urinary frequency, headache, visual changes, or any other complaints. - Related Data Home Medications Medication Instructions Recorded Confirmed Atorvastatin [Lipitor] 40 mg PO HS 07/22/19 03/04/20 Melatonin 10 - 20 mg PO HS PRN 03/04/20 03/04/20 Previous Rx's Medication Instructions Recorded Losartan [Cozaar] 50 mg PO BID #60 tab 07/23/19 carvediloL [Coreg*] 25 mg PO BID-W/MEALS #60 tab 07/23/19 hydroCHLOROthiazide [Hydrodiuril] 25 mg PO DAILY #30 tab 07/23/19 Allergies Allergy/AdvReac Type Severity Reaction Status Date / Time No Known Allergies Allergy Verified 07/22/19 15:07 Review of Systems ROS Statement: Those systems with pertinent positive or pertinent negative responses have been documented in the HPI. ROS Other: All systems not noted in ROS Statement are negative. Past Medical History Past Medical History: Coronary Artery Disease (CAD), Hyperlipidemia, Hypertension Additional Past Medical History / Comment(s): aortic anerysm History of Any Multi-Drug Resistant Organisms: None Reported Past Surgical History: No Surgical Hx Reported Past Anesthesia/Blood Transfusion Reactions: No Reported Reaction Past Psychological History: No Psychological Hx Reported Smoking Status: Current every day smoker Past Alcohol Use History: Daily Past Drug Use History: Marijuana General Exam Limitations: no limitations General appearance: alert, in no apparent distress, other (This is a well- developed, well-nourished adult male patient in no acute distress. Vital signs upon presentation are temperature 98.1F, pulse 64, respirations 18, blood pressure 147/100, pulse ox 97% on room air.) Eye exam: Present: normal appearance, PERRL, EOMI. Absent: scleral icterus, conjunctival injection, periorbital swelling ENT exam: Present: normal exam, normal oropharynx, mucous membranes moist, TM's normal bilaterally Respiratory exam: Present: normal lung sounds bilaterally. Absent: respiratory distress, wheezes, rales, rhonchi, stridor Cardiovascular Exam: Present: regular rate, normal rhythm, normal heart sounds. Absent: systolic murmur, diastolic murmur, rubs, gallop, clicks GI/Abdominal exam: Present: soft, normal bowel sounds. Absent: distended, tenderness, guarding, rebound, rigid Neurological exam: Present: alert, oriented X3, CN II-XII intact Psychiatric exam: Present: normal affect, normal mood Skin exam: Present: warm, dry, intact, normal color. Absent: rash Course Vital Signs 03/04/20 03/04/20 03/04/20 20:20 20:45 22:03 Temperature 98.1 F Pulse Rate 64 69 67 Respiratory 18 18 18 Rate Blood Pressure 147/100 134/91 138/92 O2 Sat by Pulse 97 99 98 Oximetry EKG Findings - EKG Comments: EKG Findings:: EKG obtained at 2036 shows normal sinus rhythm with a right bundle branch and left anterior fascicular block. Ventricular rate is 69, AL interval 198, QRS duration 190, QT 468, QTC 501. This is compared to previous EKGs and appears consistent. Medical Decision Making - Medical Decision Making 45-year-old male patient presents to the emergency department today for a whooshing sound in his right ear and elevated blood pressure. Physical examination is unremarkable. During visit blood pressure has returned to normal. EKG did show sinus rhythm at the bifascicular block, this is consistent with his previous EKGs. Labs reviewed and were unremarkable. Upon reevaluation patient is resting comfortably. States all symptoms have resolved. He will be discharged PRIMARY care physician for recheck in 1-2 days. Return parameters were discussed in detail. He verbalizes understanding and agrees with this plan. - Lab Data Result diagrams: 03/04/20 21:19 03/04/20 21:19 Lab Results 03/04/20 03/04/20 Range/Units 21:19 21:19 WBC 9.3 (3.8-10.6) k/uL RBC 4.95 (4.30-5.90) m/uL Hgb 15.5 (13.0-17.5) gm/dL Hct 45.1 (39.0-53.0) % MCV 91.2 (80.0-100.0) fL MCH 31.3 (25.0-35.0) pg MCHC 34.3 (31.0-37.0) g/dL RDW 12.9 (11.5-15.5) % Plt Count 223 (150-450) k/uL Neutrophils % 61 % Lymphocytes % 26 % Monocytes % 6 % Eosinophils % 4 % Basophils % 1 % Neutrophils # 5.7 (1.3-7.7) k/uL Lymphocytes # 2.4 (1.0-4.8) k/uL Monocytes # 0.6 (0-1.0) k/uL Eosinophils # 0.3 (0-0.7) k/uL Basophils # 0.1 (0-0.2) k/uL Sodium 138 (137-145) mmol/L Potassium 3.2 L (3.5-5.1) mmol/L Chloride 103 (98-107) mmol/L Carbon Dioxide 23 (22-30) mmol/L Anion Gap 12 mmol/L BUN 12 (9-20) mg/dL Creatinine 0.87 (0.66-1.25) mg/dL Est GFR (CKD-EPI)AfAm >90 (>60 ml/min/1.73 sqM) Est GFR (CKD-EPI)NonAf >90 (>60 ml/min/1.73 sqM) Glucose 123 H (74-99) mg/dL Calcium 9.8 (8.4-10.2) mg/dL Magnesium 2.2 (1.6-2.3) mg/dL Total Bilirubin 0.5 (0.2-1.3) mg/dL AST 50 (17-59) U/L ALT 72 H (4-49) U/L Alkaline Phosphatase 107 (38-126) U/L Total Protein 7.1 (6.3-8.2) g/dL Albumin 4.4 (3.5-5.0) g/dL Disposition Clinical Impression: Hypertension Disposition: HOME SELF-CARE Condition: Good Instructions (If sedation given, give patient instructions): Hypertension (ED) Additional Instructions: Continue medications. Monitor blood pressures. Follow-up with her primary care physician for recheck in 1-2 days. Return to the emergency department immediately for any new, worsening, or concerning symptoms. Is patient prescribed a controlled substance at d/c from ED?: No Referrals: None,Stated [Primary Care Provider] - 1-2 days Time of Disposition: 21:55
[2020-03-04 22:03] VITALS: BP 138/92; PULSE 67
== END 2020-03-04 22:12 | disposition home or self-care (01) ==
LOC: EC 20:11
DX: I10 Essential (primary) hypertension (principal); I45.2 Bifascicular block; E78.5 Hyperlipidemia, unspecified; I25.10 Atherosclerotic heart disease of native coronary artery without angina pectoris; F17.200 Nicotine dependence, unspecified, uncomplicated; Z86.79 Personal history of other diseases of the circulatory system; Z79.899 Other long term (current) drug therapy
CPT/HCPCS: 36415; 80053; 83735; 85025; 93005; 99283

== ENCOUNTER → 2020-08-18 | Outpatient (CLI) | payer OTHER ==
--- NOTE | 2020-08-18 21:45 | CT ---
CT CHEST FOR PULMONARY EMBOLISM. EXAMINATION TYPE: CT angio chest DATE OF EXAM: 08/18/2020 INDICATION: F/U for aneurysm CT DLP: 899 mGycm, Automated exposure control for dose reduction was used. CONTRAST: Patient injected with 100 mL of Isovue 370. COMPARISON: 07/03/2019 TECHNIQUE: CT of the chest is performed on a spiral scan at 2 mm thick sections. Study is performed with intravenous contrast timed for evaluation for aortic aneurysm This will limit additional portion s of the evaluation. 3-D MIP images reconstructed by the technologist are reviewed on the computer i n the coronal and sagittal planes. FINDINGS: Mild coronary artery calcifications are present. There is a small hiatal hernia present. There is a s coliosis within the thoracic spine. No suspicious lytic or sclerotic lesions are evident. There is a small hypodensity within the anterior medial right lobe thyroid. Thyroid is otherwise unremarkable. Aorta: There is a three-vessel arch. The aorta at the aortic root measures 3.5 cm. Aorta at the main pulmonary artery is 3.9 cm. (Previous measurement 4.4 cm. Aorta at the aortic arch is transverse dime nsion of 3.0 cm. Aorta at the diaphragm measures 2.6 cm. No dissection is evident. Three-D reconstructed images filmed from a separate computer performed by the technologist are presen adebayo. No mediastinal or hilar adenopathy enlarged by CT criteria is evident. The ascending aorta diameter at the level of the main pulmonary artery is 3.9 cm. The main pulmonary artery diameter at the bifur cation is 2.6 cm. Lung windows are clear. Limited CT section through the upper abdomen are unremarkable. IMPRESSIONS: 1. Borderline size ascending thoracic aorta measuring 3.9 cm on the current examination slightly smal ler than the previous exam discrete aneurysmal dilatation is not evident on this exam.
== END | disposition home or self-care (01) ==
LOC: RADCTMAIN 16:26
PROVIDERS: ATTEND Internal Medicine Cardiovascular Disease
DX: I71.2 Thoracic aortic aneurysm, without rupture (principal)
CPT/HCPCS: 71275; Q9967

== ENCOUNTER 2022-06-16 17:39 | Emergency (ER) | payer OTHER ==
[2022-06-16 17:48] VITALS: BP 148/89; PULSE 78; RESP 20; TEMP 98
--- NOTE | 2022-06-16 20:55 | ED ---
Wound/Laceration HPI - General Chief Complaint: Wound/Laceration Stated Complaint: Ankle Lac Time Seen by Provider: 06/16/22 18:49 Source: patient Mode of arrival: ambulatory Limitations: no limitations - History of Present Illness Initial Comments: Patient is a 47-year-old male presenting with chief complaint of laceration. Patient was using a wood splitter when it hit his left ankle, resulting in a 7 cm laceration. Patient has full range of motion of the foot, no numbness or tingling. Upon arrival bleeding is well-controlled. Patient's last tetanus shot was less than 5 years ago. - Related Data Home Medications Medication Instructions Recorded Confirmed Atorvastatin [Lipitor] 40 mg PO HS 07/22/19 03/04/20 Melatonin [Melatonin ER] 10 - 20 mg PO HS PRN 03/04/20 03/04/20 Previous Rx's Medication Instructions Recorded Losartan [Cozaar] 50 mg PO BID #60 tab 07/23/19 carvediloL [Coreg*] 25 mg PO BID-W/MEALS #60 tab 07/23/19 hydroCHLOROthiazide [Hydrodiuril] 25 mg PO DAILY #30 tab 07/23/19 Allergies Allergy/AdvReac Type Severity Reaction Status Date / Time No Known Allergies Allergy Verified 06/16/22 17:49 Review of Systems ROS Statement: Those systems with pertinent positive or pertinent negative responses have been documented in the HPI. ROS Other: All systems not noted in ROS Statement are negative. Past Medical History Past Medical History: Coronary Artery Disease (CAD), Hyperlipidemia, Hypertension Additional Past Medical History / Comment(s): aortic anerysm History of Any Multi-Drug Resistant Organisms: None Reported Past Surgical History: No Surgical Hx Reported Past Anesthesia/Blood Transfusion Reactions: No Reported Reaction Past Psychological History: No Psychological Hx Reported Smoking Status: Current every day smoker Past Alcohol Use History: Daily Past Drug Use History: Marijuana General Exam Limitations: no limitations General appearance: alert, in no apparent distress Head exam: Present: atraumatic, normocephalic, normal inspection Eye exam: Present: normal appearance Neck exam: Present: normal inspection Extremities exam: Present: full ROM Neurological exam: Present: alert, oriented X3, CN II-XII intact Psychiatric exam: Present: normal affect, normal mood Expanded Type of lesion: Present: laceration (7cm left ankle) Course Vital Signs 06/16/22 17:46 Temperature 98 F Pulse Rate 78 Respiratory 20 Rate Blood Pressure 148/89 O2 Sat by Pulse 98 Oximetry Procedures - Laceration Laceration #1 Consent Obtained: verbal consent Indication: laceration Site: lower extremity (left) Size (cm): 7 Description: linear Depth: simple, single layer Anesthetic Used: lidocaine 1%, without epi Anesthesia Technique: local infiltration Pre-repair: wound explored, irrigated extensively Type of Sutures: nylon Size of Sutures: 3-0 Number of Sutures: 7 Patient Tolerated Procedure: well Medical Decision Making - Medical Decision Making Patient is a 47-year-old male presenting with chief complaint of laceration to the left ankle. Laceration was repaired. X-ray showed no acute process or foreign body. Patient has full range of motion and sensation, no evidence of tendon involvement. Educated on wound care. Follow-up with PCP. Report back to ER with any new or worsening symptoms. Discussed return parameters and answered all questions. Patient conveyed verbal understanding and agreed to the plan. I discussed this case in detail with my attending Dr. Dexter Disposition Clinical Impression: Laceration Disposition: HOME SELF-CARE Condition: Good Instructions (If sedation given, give patient instructions): Care For Your Stitches (ED), Laceration (ED) Additional Instructions: Follow-up with PCP. Report back to ER with any new or worsening symptoms. Monitor for signs of infection, including but not limited to redness, swelling, warmth, tenderness, discharge, fever, chills. He may cleanse the wound gently with soap and water. Avoid prolonged submersion, such as swimming or baths. Keep the wound clean, dry, and covered. Sutures may be removed in 10-14 days. Is patient prescribed a controlled substance at d/c from ED?: No Referrals: None,Stated [Primary Care Provider] - 1-2 days Time of Disposition: 21:00
--- NOTE | 2022-06-16 20:58 | XR ---
EXAMINATION TYPE: XR tibia fibula LT DATE OF EXAM: 06/16/2022 COMPARISON: NONE HISTORY: Ankle laceration TECHNIQUE: 4 views FINDINGS: The tibia and fibula appear intact. There is calcification in the interosseous ligament at the distal tibia and fibula. Exam limited by overlying artifacts. Ankle mortise is anatomic. The join t spaces are fairly normal. No sign of knee joint effusion. IMPRESSION: No acute abnormality of the left tibia and fibula. No evidence of a foreign body.
== END 2022-06-16 21:13 | disposition home or self-care (01) ==
LOC: EC 17:39
DX: S91.012A Laceration without foreign body, left ankle, initial encounter (principal); I11.9 Hypertensive heart disease without heart failure; I25.10 Atherosclerotic heart disease of native coronary artery without angina pectoris; F12.90 Cannabis use, unspecified, uncomplicated; F17.200 Nicotine dependence, unspecified, uncomplicated; W31.2XXA Contact with powered woodworking and forming machines, initial encounter
CPT/HCPCS: 12002; 99282